=== PATIENT | male | born 1980 | race Caucasian/White ===

== ENCOUNTER 2025-04-07 00:41 | Inpatient (IN) | payer OTHER ==
[2025-04-07 01:04] LABS: #Basophils 0.05 10x3/uL (0.0-0.2); #Eosinophils 0.22 10x3/uL (0.0-0.7); #Monocytes 1.08 10x3/uL (0.11-0.59); #Neutrophils 6.07 10x3/uL (1.40-6.50); %Basophils 0.4 % (0.0-1.0); %Eosinophils 1.9 % (0.0-10.0); %Lymphocytes 35.6 % (21.0-51.0); %Monocytes 9.3 % (0.0-10.0); %Neutrophils 52.5 % (42.0-75.0); Hematocrit 37.5 % (42.0-52.0); Hemoglobin 13.1 g/dL (14.0-18.0); Mean Corpuscular Hemoglobin 31.5 pg (27.0-31.0); Mean Corpuscular Volume 90.1 fL (78.0-98.0); Platelet Count 344 10x3/uL (130-400); Red Blood Cell (RBC) Count 4.16 mill/uL (4.70-6.10); White Blood Cell (WBC) Count 11.59 10x3/uL (4.8-10.8)
[2025-04-07] MEDS ORDERED: Ondansetron PF 4 MG/2 ML Vial ONE (01:10)
[2025-04-07] MEDS ORDERED: CEFAZOLIN 2 GM VIAL ONE (01:10)
[2025-04-07] MEDS ORDERED: Boostrix 0.5 ML (Tdap) VIAL (>/=7 yrs of age) ONE (01:11)
[2025-04-07 01:12] LABS: Anion Gap 12 mmol/L (10-20); BUN (Urea Nitrogen) 26 mg/dL (8.9-20.6); Calc. Creatinine Clearance 0 mL/min (70-130); Calcium 9.1 mg/dL (7.8-10.44); Carbon Dioxide 26 mmol/L (22-29); Chloride 103 mmol/L (98-107); Glucose 90 mg/dL (70-105); Potassium 3.7 mmol/L (3.5-5.1); Sodium 137 mmol/L (136-145)
[2025-04-07] MEDS ORDERED: Ketorolac Tromethamine 30 MG (1 mL) VIAL ONE (02:31)
[2025-04-07] MEDS ORDERED: Dextrose 50% Abboject 50 ML SYRINGE SLOW IVP PRN (02:33)
[2025-04-07] MEDS ORDERED: hydrALAZINE 20 MG/ML VIAL SLOW IVP PRN (02:33)
[2025-04-07] MEDS ORDERED: Glucagon 1 MG/ML KIT IM PRN (02:33)
[2025-04-07] MEDS ORDERED: Methocarbamol 500 MG TAB PO PRN (02:37)
[2025-04-07 04:30] VITALS: BMI 22.1
[2025-04-07 08:16] VITALS: BP 92/55; TEMP 97.7
[2025-04-07] MEDS: Acetaminophen 325 MG TAB PO PRN (09:12)
[2025-04-07] MEDS: Clindamycin/D5W 900 MG in Premix 1 BAG IVPB SCH (12:33)
[2025-04-07] MEDS ORDERED: Iopamidol-370 76% 500 ML MDV (1 ML CHARGE) ONE (13:10)
== END 2025-04-07 15:32 | disposition home or self-care (01) | DRG 563 ==
LOC: ERS 00:41 → SURG A 02:33
PROVIDERS: ADMIT Surgery; ATTEND Surgery
DX: S92.252B Displaced fracture of navicular [scaphoid] of left foot, initial encounter for open fracture (principal); Z98.890 Other specified postprocedural states; W34.00XA Accidental discharge from unspecified firearms or gun, initial encounter; Z79.899 Other long term (current) drug therapy; Z88.8 Allergy status to other drugs, medicaments and biological substances
CPT/HCPCS: 80048; 85025; 90471; 90715; 96374; 96375; 96376; J1885; J2270; J2405; J3490; Q9967